=== PATIENT | male | born 1970 | race Caucasian/White ===

== ENCOUNTER 2018-08-10 18:17 | Emergency (ER) | payer OTHER ==
[2018-08-10] MEDS ORDERED: FENTANYL CITR 100 MCG/2 ML ONE (19:35)
[2018-08-10] MEDS ORDERED: DIAZEPAM 5 MG TABLET ONE (19:35)
--- NOTE | 2018-08-10 19:38 | ER ---
Nurse's Notes [facility] Name: Biju Arvizu Age: 48 yrs Sex: Male : 1970 Arrival Date: 08/10/2018 Time: 18:21 Bed 23 Private MD: Diagnosis: Pain in right shoulder Presentation: 08/10 18:25 Presenting complaint: Patient states: chronic right shoulder pain and pain has sv increased the last couple of days. Transition of care: patient was not received from another setting of care. Onset of symptoms was 2017. Care prior to arrival: None. 18:25 Method Of Arrival: Ambulatory sv 18:25 Acuity: VERA 4 sv 19:51 Risk Assessment: Do you want to hurt yourself or someone else? Patient reports no tl3 desire to harm self or others. Initial Sepsis Screen: Does the patient meet any 2 criteria? No. Patient's initial sepsis screen is negative. Does the patient have a suspected source of infection? No. Patient's initial sepsis screen is negative. Triage Assessment: 18:25 General: Appears in no apparent distress. uncomfortable, Behavior is calm, cooperative, sv appropriate for age. Pain:. Pain: Complains of pain in anterior aspect of right shoulder Pain currently is 7 out of 10 on a pain scale. Is chronic. Neuro: Level of Consciousness is awake, alert, obeys commands, Oriented to person, place, time, situation, Moves all extremities. Full function Gait is steady. Respiratory: Respiratory effort is even, unlabored, Respiratory pattern is regular, symmetrical. Derm: Skin is pink, warm \T\ dry. Historical: - Allergies: 18:25 No Known Allergies; sv - PMHx: 18:25 Back pain; sv - Immunization history:: Flu vaccine is not up to date. - Social history:: Smoking status: Patient uses tobacco products, smokes one pack cigarettes per day. - Ebola Screening: : No symptoms or risks identified at this time. Screenin:43 Abuse screen: Denies threats or abuse. Nutritional screening: No deficits noted. tl3 Tuberculosis screening: No symptoms or risk factors identified. Fall Risk None identified. Assessment: 18:43 General: Appears uncomfortable, well groomed, well developed, well nourished, Behavior tl3 is calm, cooperative, appropriate for age. Pain: Complains of pain in chronic right shoulder pain. Neuro: Level of Consciousness is awake, alert, obeys commands, Oriented to person, place, time, situation, Appropriate for age. Cardiovascular: Patient's skin is warm and dry. Respiratory: Airway is patent Respiratory effort is Respiratory pattern is regular. GI: No signs and/or symptoms were reported involving the gastrointestinal system. : No signs and/or symptoms were reported regarding the genitourinary system. EENT: No signs and/or symptoms were reported regarding the EENT system. Derm: No signs and/or symptoms reported regarding the dermatologic system. 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 Vital Signs: 18:26 BP 135 / 90; Pulse 97; Resp 18; Temp 97.7; Pulse Ox 97% ; Weight 79.38 kg; Height 5 ft. sv 7 in. (170.18 cm); Pain 7/10; 18:26 Body Mass Index 27.41 (79.38 kg, 170.18 cm) sv ED Course: 18:21 Patient arrived in ED. rg4 18:25 Triage completed. sv 18:26 Arm band placed on. sv 18:32 [facility] snw 18:32 Lex Calix MD is Attending Physician. snw 18:37 Mia Reed, TAMMIE is Primary Nurse. tl3 18:43 Patient has correct armband on for positive identification. tl3 18:43 No provider procedures requiring assistance completed. Patient did not have IV access tl3 during this emergency room visit. 19:37 Adolfo Zavala MD is Referral Physician. snw Administered Medications: 19:33 Drug: fentaNYL (PF) 50 mcg Route: IM; Site: left gluteus; tl3 19:50 Follow up: Response: Medication administered at discharge. tl3 19:33 Drug: Valium 5 mg Route: PO; tl3 19:49 Follow up: Response: Medication administered at discharge. tl3 Outcome: 19:38 Discharge ordered by . snw 19:50 Discharged to home ambulatory. tl3 19:50 Condition: stable 19:50 Discharge instructions given to patient, Instructed on discharge instructions, follow up and referral plans. the need for admit, Demonstrated understanding of instructions, follow-up care, medications, Prescriptions given X 2. 19:51 Patient left the ED. tl3 Signatures: Hailey Cruz, RN RN Shanna Altamirano, NECK CUTTER-C NECK CUTTER-Csnw Su Fuchs rg4 Mia Reed RN RN tl3
--- NOTE | 2018-08-10 19:38 | EDPHYS ---
Physician Documentation [facility] Name: Biju Arvizu Age: 48 yrs Sex: Male : 1970 Arrival Date: 08/10/2018 Time: 18:21 Bed 23 Private MD: ED Physician Lex Calix HPI: 08/10 20:54 This 48 yrs old Male presents to ER via Ambulatory with complaints of snw Shoulder Pain. 20:54 The patient or guardian complains of decreased range of motion, pain. right shoulder snw and right trapezius. Context: The problem was sustained outdoors, resulted from torn area in shoulder (rotator cuff?) years ago, Had MRI 3 months ago, has not seen ortho. Pt states the last three days the pain is constant and he is unable to work, The patient experiences decreased range of motion, The patient reports no obvious deformity. Onset: The symptoms/episode began/occurred gradually, 1 year(s) ago, and became worse 3 day(s) ago. Associated signs and symptoms: Pertinent positives: severe pain. Associated signs and symptoms: Pertinent negatives: tingling, Weakness in anterior aspect of right shoulder. Severity of symptoms: At their worst the symptoms were moderate, severe. The patient has experienced similar episodes in the past. The patient has not recently seen a physician. Historical: - Allergies: 18:25 No Known Allergies; sv - PMHx: 18:25 Back pain; sv - Immunization history:: Flu vaccine is not up to date. - Social history:: Smoking status: Patient uses tobacco products, smokes one pack cigarettes per day. - Ebola Screening: : No symptoms or risks identified at this time. ROS: 20:54 Constitutional: Negative for fever, chills, and weight loss, Eyes: Negative for injury, snw pain, redness, and discharge, ENT: Negative for injury, pain, and discharge, Neck: Negative for injury, pain, and swelling, Cardiovascular: Negative for chest pain, palpitations, and edema, Respiratory: Negative for shortness of breath, cough, wheezing, and pleuritic chest pain, Abdomen/GI: Negative for abdominal pain, nausea, vomiting, diarrhea, and constipation, Back: Negative for injury and pain, : Negative for injury, bleeding, discharge, and swelling, Skin: Negative for injury, rash, and discoloration, Neuro: Negative for headache, weakness, numbness, tingling, and seizure, Psych: Negative for depression, anxiety, suicide ideation, homicidal ideation, and hallucinations. 20:54 MS/extremity: Positive for pain, of the anterior aspect of right shoulder. Exam: 20:53 Constitutional: This is a well developed, well nourished patient who is awake, alert, snw and in no acute distress. Head/Face: Normocephalic, atraumatic. Eyes: Pupils equal round and reactive to light, extra-ocular motions intact. Lids and lashes normal. Conjunctiva and sclera are non-icteric and not injected. Cornea within normal limits. Periorbital areas with no swelling, redness, or edema. ENT: Nares patent. No nasal discharge, no septal abnormalities noted. Tympanic membranes are normal and external auditory canals are clear. Oropharynx with no redness, swelling, or masses, exudates, or evidence of obstruction, uvula midline. Mucous membranes moist. Neck: Trachea midline, no thyromegaly or masses palpated, and no cervical lymphadenopathy. Supple, full range of motion without nuchal rigidity, or vertebral point tenderness. No Meningismus. Chest/axilla: Normal chest wall appearance and motion. Nontender with no deformity. No lesions are appreciated. Cardiovascular: Regular rate and rhythm with a normal S1 and S2. No gallops, murmurs, or rubs. Normal PMI, no JVD. No pulse deficits. Respiratory: Lungs have equal breath sounds bilaterally, clear to auscultation and percussion. No rales, rhonchi or wheezes noted. No increased work of breathing, no retractions or nasal flaring. Abdomen/GI: Soft, non-tender, with normal bowel sounds. No distension or tympany. No guarding or rebound. No evidence of tenderness throughout. Back: No spinal tenderness. No costovertebral tenderness. Full range of motion. Skin: Warm, dry with normal turgor. Normal color with no rashes, no lesions, and no evidence of cellulitis. Neuro: Awake and alert, GCS 15, oriented to person, place, time, and situation. Cranial nerves II-XII grossly intact. Motor strength 5/5 in all extremities. Sensory grossly intact. Cerebellar exam normal. Normal gait. Psych: Awake, alert, with orientation to person, place and time. Behavior, mood, and affect are within normal limits. 20:53 Musculoskeletal/extremity: Extremities: grossly normal except: noted in the anterior aspect of right shoulder: decreased ROM, pain, painful arc. Vital Signs: 18:26 BP 135 / 90; Pulse 97; Resp 18; Temp 97.7; Pulse Ox 97% ; Weight 79.38 kg; Height 5 ft. sv 7 in. (170.18 cm); Pain 7/10; 18:26 Body Mass Index 27.41 (79.38 kg, 170.18 cm) sv MDM: 18:58 Patient medically screened. snw 20:54 Data reviewed: vital signs, nurses notes. Data interpreted: Pulse oximetry: on room air snw is 97 %. Interpretation: normal. Counseling: I had a detailed discussion with the patient and/or guardian regarding: the historical points, exam findings, and any diagnostic results supporting the discharge/admit diagnosis, the need for outpatient follow up, to return to the emergency department if symptoms worsen or persist or if there are any questions or concerns that arise at home. Special discussion: Based on the history and exam findings, there is no indication for further emergent testing or inpatient evaluation. I discussed with the patient/guardian the need to see the orthopedic surgeon for further evaluation of the symptoms. I discussed with the patient/guardian the need to see the primary care provider for further evaluation of the symptoms. Administered Medications: 19:33 Drug: fentaNYL (PF) 50 mcg Route: IM; Site: left gluteus; tl3 19:50 Follow up: Response: Medication administered at discharge. tl3 19:33 Drug: Valium 5 mg Route: PO; tl3 19:49 Follow up: Response: Medication administered at discharge. tl3 Disposition: 08/11 15:20 Co-signature as Attending Physician, Lex Calix MD. Disposition: 08/10/18 19:38 Discharged to Home. Impression: Pain in right shoulder. - Condition is Stable. - Discharge Instructions: Joint Pain, Shoulder Pain, Cryotherapy, [id number], Heat Therapy. - Prescriptions for Ultram 50 mg Oral Tablet - take 1 tablet by ORAL route every 6 hours As needed; 30 tablet. orphenadrine citrate 100 mg Oral Tablet Sustained Release - take 1 tablet by ORAL route 2 times per day As needed; 20 tablet. - Medication Reconciliation Form, Thank You Letter, Antibiotic Education, Prescription Opioid Use form. - Follow up: Private Physician; When: 1 - 2 days; Reason: Recheck today's complaints, Continuance of care, Re-evaluation by your physician. Follow up: Adolfo Zavala MD; When: 2 - 3 days; Reason: Recheck today's complaints, Continuance of care. Signatures: Hailey Cruz RN RN Shanna Altamirano, ECONOMICS DEPARTMENT CHAIR-C ECONOMICS DEPARTMENT CHAIR-Csnw Lex Calix MD MD Mia Reed RN RN tl3 Corrections: (The following items were deleted from the chart) 08/10 19:51 19:38 08/10/2018 19:38 Discharged to Home. Impression: Pain in right shoulder. tl3 Condition is Stable. Forms are Medication Reconciliation Form, Thank You Letter, Antibiotic Education, Prescription Opioid Use. Follow up: Private Physician; When: 1 - 2 days; Reason: Recheck today's complaints, Continuance of care, Re-evaluation by your physician. Follow up: Adolfo Zavala; When: 2 - 3 days; Reason: Recheck today's complaints, Continuance of care. snw
== END 2018-08-10 19:51 | disposition home or self-care (01) ==
LOC: ER 18:17
DX: M25.511 Pain in right shoulder (principal); F17.210 Nicotine dependence, cigarettes, uncomplicated
CPT/HCPCS: 96372; 99283; J3010